=== PATIENT | male | born 1960 | race Caucasian/White ===

== ENCOUNTER 2017-10-09 14:37 | Emergency (ER) | payer MEDICAID, OTHER ==
[~2017-10-09] VITALS: Ht 175.3 cm; Wt 97.5 kg
[2017-10-09 14:56] VITALS: BP 113/82
--- NOTE | 2017-10-09 15:05 | NUR ---
PT. CAME INTO THE ED DUE TO L EYE PAIN X LAST NIGHT. PT. STATES " I STARTED WITH THIS EYE PAIN LAST NIGHT AND IT TURNED RED, I HAVE HAD IRITIS BEFORE SO JUST WANTED TO GET IT CHECKED OUT." PT. HAS 8/10 BURNING NON RADIATING PAIN ON L EYE. DENIES N/V/D. PER PT " I HAVE HAD YELLOW DISCHARGE FROM MY EYE". NO DISCHARGE NOTED AT THIS TIME TO THE L EYE. REDNESS NOTED TO L EYE. ER MD NOTIFIED. WILL CONTINUE TO MONITOR. SAFETY PRECAUTIONS IMPLEMENTED.
--- NOTE | 2017-10-09 16:00 | NUR ---
PT. RSETING COMFORTABLY IN BED, RR EVEN AND UNLABORED. BED IN LOWEST POSITION. WILL CONTINUE TO MONITOR.
--- NOTE | 2017-10-09 16:30 | NUR ---
PT D/C PER MD. NO D/C PAPERWORK AVAILABLE AT THIS TIME.
--- NOTE | 2017-10-09 16:50 | NUR ---
PT. IN LOBBY WAITING DISCHARGE ORDERS.
--- NOTE | 2017-10-09 16:59 | NUR ---
Patient discharged with v/s stable. Written and verbal after care instructions given and explained. Patient alert, oriented and verbalized understanding of instructions. Ambulatory with steady gait. All questions addressed prior to discharge. ID band removed. Patient advised to follow up with PMD. Rx of GENTAMYCIN DROPS given. Patient educated on indication of medication including possible reaction and side effects. Opportunity to ask questions provided and answered.
[2017-10-09 17:01] VITALS: BP 129/88
== END 2017-10-09 16:59 | disposition home or self-care (01) ==
LOC: MED 14:37
DX: H10.89 Other conjunctivitis (principal); F17.200 Nicotine dependence, unspecified, uncomplicated
CPT/HCPCS: 99283